=== PATIENT | male | born 1940 | race Caucasian/White ===

== ENCOUNTER → 2017-01-24 | Outpatient (CLI) | payer MEDICARE ==
[~2017-01-24] MED LIST: ACET1TAB64 PO; ALLO300T PO; ALPR0.25 PO; ASPI-515 PO; CYAN10005 PO; FOLI-17 PO; HYDR-3144 PO; HYDR-3240 PO; LOVA20TA2 PO; METO25TA2 PO; METO25TA35 PO; OMEP-110 PO; PRAV40TA2 PO; ZOLP10TA5 PO
== END | disposition home or self-care (01) ==
LOC: CARD 10:35
PROVIDERS: ATTEND Internal Medicine Cardiovascular Disease
DX: R06.02 Shortness of breath (principal)
CPT/HCPCS: 93306

== ENCOUNTER → 2017-02-09 | Outpatient (CLI) | payer MEDICARE | END | disposition home or self-care (01) | LOC: CFH 14:47 | PROVIDERS: ATTEND Internal Medicine Cardiovascular Disease | DX: I31.9 Disease of pericardium, unspecified (principal); Z85.72 Personal history of non-Hodgkin lymphomas; R07.9 Chest pain, unspecified | CPT/HCPCS: 75557 ==

== ENCOUNTER → 2017-07-06 | Outpatient (CLI) | payer MEDICARE ==
[~2017-07-06] MED LIST changes: -HYDR-3144 PO; +HYDR-3245 PO
== END | disposition home or self-care (01) ==
LOC: CFH 14:00
PROVIDERS: ATTEND Internal Medicine Cardiovascular Disease
DX: I31.9 Disease of pericardium, unspecified (principal); Z85.72 Personal history of non-Hodgkin lymphomas
CPT/HCPCS: 75557

== ENCOUNTER → 2018-12-25 | Outpatient (CLI) | payer MEDICARE ==
[~2018-12-25] MED LIST changes: +REGADENOSON 0.4 MG/5 ML SYRINGE ONE
== END | disposition home or self-care (01) ==
LOC: CFH 12:56
PROVIDERS: ATTEND Internal Medicine Cardiovascular Disease
DX: I35.8 Other nonrheumatic aortic valve disorders (principal); I51.7 Cardiomegaly; I25.10 Atherosclerotic heart disease of native coronary artery without angina pectoris; R06.02 Shortness of breath; E78.5 Hyperlipidemia, unspecified
CPT/HCPCS: 78452; 93017; 93306; A9502; J2785